=== PATIENT | male | born 1960 | race Caucasian/White ===

== ENCOUNTER 2022-04-18 18:37 | Emergency (ER) | payer OTHER | END 2022-04-18 19:54 | disposition left against medical advice (07) | LOC: ER 18:37 | DX: Z53.21 Procedure and treatment not carried out due to patient leaving prior to being seen by health care provider (principal) ==

== ENCOUNTER 2022-04-29 13:25 | Emergency (ER) | payer OTHER ==
[~2022-04-29] VITALS: Ht 172.7 cm; Wt 85.0 kg
[2022-04-29 13:44] VITALS: BP 110/86
[2022-04-29] MEDS ORDERED: ACETAMINOPHEN 325MG TABLET PO ONE (14:45)
== END 2022-04-29 15:30 | disposition home or self-care (01) ==
LOC: EDBD → ER 14:11
DX: S10.81XA Abrasion of other specified part of neck, initial encounter (principal); X58.XXXA Exposure to other specified factors, initial encounter; Y93.89 Activity, other specified; Y92.018 Other place in single-family (private) house as the place of occurrence of the external cause
CPT/HCPCS: 99283

== ENCOUNTER 2022-04-29 20:46 | Emergency (ER) | payer OTHER ==
[~2022-04-29] VITALS: Ht 167.6 cm; Wt 67.8 kg
[2022-04-29 22:43] VITALS: BP 134/89
== END 2022-04-30 03:00 | disposition left against medical advice (07) ==
LOC: ER 20:46
DX: Z53.21 Procedure and treatment not carried out due to patient leaving prior to being seen by health care provider (principal)